=== PATIENT | male | born 1990 | race Caucasian/White ===

== ENCOUNTER 2021-11-15 02:08 | Emergency (ER) | payer OTHER, SELFPAY ==
[2021-11-15 02:20] VITALS: BP 144/85; PULSE 81; RESP 16; TEMP 36.4; O2SAT 98; BMI 31.9
--- NOTE | 2021-11-15 02:27 | ED.SKABFB ---
HPI - Skin/Abscess/Foreign Bdy General Chief complaint: Wound/Laceration Stated complaint: hand injury - work related Time Seen by Provider: 11/15/21 02:24 Source: patient Mode of arrival: ambulatory Limitations: no limitations History of Present Illness HPI narrative: This is a 31-year-old male no known medical history presenting to the emergency department with a work related injury. Patient fell, landing on concrete with his 2 hands, thus abrasions to the hand. He tells me that after this happened he clean the area well with soap and water. This was not a human bite. He does not feel as though there is a foreign body that the area. He denies any joint/wrist/elbow/shoulder pain. When he fell he did not lose consciousness. He is not on blood thinners. Denies any other medical complaints at this time. complaint: other (Abrasion) Onset (ago): minute(s) (30) Tetanus up to date: unsure Location: L hand and R hand Severity: mild Quality: burning Pain Consistency: constant Relieving factors: none Exacerbating factors: none Context: other (Fall) Associated symptoms: denies other symptoms Treatments prior to arrival: none Related Data Previous Rx's Medication Instructions Recorded doxycycline hyclate 100 mg capsule 100 mg PO BID 7 Days #14 cap 11/15/21 Allergies Allergy/AdvReac Type Severity Reaction Status Date / Time No Known Allergies Allergy Unverified 05/02/20 15:54 Review of Systems Review of Systems: Constitutional : No Fever, No Chills, Cardiovascular : No Chest Pain, No SOB Respiratory : No Dyspnea Gastrointestinal : No abdominal pain Musculoskeletal : No Joint Swelling Skin : No rash, positive skin abrasion Neuro : No Weakness, No Numbness Psych : No SI/HI Yes all other systems are reviewed and are negative [facility] Past Medical History Attestation statement: The following information was validated with the patient. Source: old records reviewed and nursing notes reviewed Medical History No known health problems Surgical History No history of previous surgery Social History Social History Advance Directives: No Advance Directives Information Provided: No Physical Exam Vital Signs: Vital Signs: Vital signs stable Appearance: Alert.? Oriented X3.? No acute distress.? Head: Normocephalic, atraumatic, no step-offs or deformities Eyes: Pupils equal, round and reactive to light.? Neck: Normal inspection.? Neck supple.? CVS: Normal heart rate and rhythm.? Pulses normal.? Respiratory: No respiratory distress.? Breath sounds normal.? Abdomen: Soft and nontender.? Skin: Skin warm and dry.? Normal skin color.? Normal skin turgor.?+ abrasion to bilateral palms of hands. Extremities: 5/5 strength to bilateral upper and lower extremities Neuro: Oriented X 3.? No motor deficit.? No sensory deficit. CN 2-12 intact Course Reevaluation(s) Reevaluation #1: Area was cleaned with hydrogen peroxide and saline. Dried. Dressings applied to the area. Advised him to return with new or worsening symptoms. I will send patient home on antibiotics in case area worsens. Educated on signs of infection. Comfortable discharge home with PCP follow-up. Patient is cleared to work as soon as today but if he is having pain he can wait till tomorrow. Time: 02:31 Reevaluation #2: I personally irrigated the abrasions. Applied bacitracin. Patient was given his tetanus shot since he is unsure of when his last 1 was he does not think it was within the past 5 years. 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 PE with abrasions to bilatral palms no evidence of foreign bodies. Bilateral radial pulses 2+ equal and b/l. Capillary refill less than 2 seconds equal bilateral. Plan at this time is to clean the area well. Medical Records Attestation: I reviewed the patient's medical records. Lab Data Attestation: I reviewed the patient's lab results. Critical Care Time Critical Care Time Critical Care Time: No Discharge Plan Discharge Clinical Impression: Abrasion, Work related injury Patient Disposition: Home, Self-Care Additional Instructions: Take your medications as prescribed. If you were prescribed antibiotics today, it is important that you take your medication to their entirety, do not skip any doses, do not finish them early. Follow-up with your primary care provider this week. Clean the area well with soap and water. Will go for signs of infection such as fevers, redness, pain, swelling. Return to the emergency department with new or worsening symptoms. Such as fevers, chills, chest pain, shortness of breath, nausea, vomiting, dizziness, headache, vision changes, lethargy In case of emergency call 911 Prescriptions: New doxycycline hyclate 100 mg capsule 100 mg PO BID 7 Days Qty: 14 0RF Referrals: Physician,Unknown J [Primary Care Provider] - 2 days Stand Alone Forms: Work/School Release
[2021-11-15] MEDS: Diphth,Pertus(ACell),Tet Adult 0.5 ML SYRINGE IM (02:59)
== END 2021-11-15 03:15 | disposition home or self-care (01) ==
PROVIDERS: Emergency Provider Student in an Organized Health Care Education/Training Program
DX: S60.512A Abrasion of left hand, initial encounter (principal); S60.511A Abrasion of right hand, initial encounter; W18.30XA Fall on same level, unspecified, initial encounter; Y93.9 Activity, unspecified; Y92.480 Sidewalk as the place of occurrence of the external cause; Y99.0 Civilian activity done for income or pay
CPT/HCPCS: 90471; 90715; 99283; 99284

== ENCOUNTER 2023-03-05 12:01 | Emergency (ER) | payer OTHER, SELFPAY ==
--- NOTE | ~2023-03-05 | XR_ITS ---
EXAMINATION: XR KNEE, LEFT CLINICAL INFORMATION: Knee pain. Injury. COMPARISON: None available. TECHNIQUE: Four views of the left knee. FINDINGS: No fracture or subluxation. Compartmental joint spaces are maintained. No joint effusion. The soft tissues are unremarkable. XR/XR knee LT 4V IMPRESSION: Normal left knee.
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
[2023-03-05 12:04] VITALS: BP 145/80; PULSE 100; RESP 18; TEMP 36.7; O2SAT 96; BMI 32.1
[2023-03-05] MEDS: Acetaminophen 325 MG TABLET 975 MG PO (13:11)
--- NOTE | 2023-03-05 13:12 | PC.NURSE ---
pt medicated for pain per order
== END 2023-03-05 13:57 | disposition home or self-care (01) ==
PROVIDERS: Emergency Provider Emergency Medicine
DX: S80.212A Abrasion, left knee, initial encounter (principal); S50.312A Abrasion of left elbow, initial encounter; S50.811A Abrasion of right forearm, initial encounter; Y35.891A Legal intervention involving other specified means, law enforcement official injured, initial encounter; Y93.89 Activity, other specified; Y92.59 Other trade areas as the place of occurrence of the external cause; Y99.0 Civilian activity done for income or pay
CPT/HCPCS: 73564; 99283

== ENCOUNTER → 2023-03-08 08:10 | Outpatient (BNVA) | payer OTHER, SELFPAY | PROVIDERS: Visit Provider Physician Assistant Medical | DX: S80.02XA Contusion of left knee, initial encounter (principal); S83.412A Sprain of medial collateral ligament of left knee, initial encounter; Y93.02 Activity, running | CPT/HCPCS: 99202 ==

== ENCOUNTER → 2023-03-15 11:26 | Outpatient (BNVA) | payer OTHER, SELFPAY | PROVIDERS: Visit Provider Physician Assistant Medical | DX: S80.02XA Contusion of left knee, initial encounter (principal); S83.412A Sprain of medial collateral ligament of left knee, initial encounter; Y93.02 Activity, running | CPT/HCPCS: 99213 ==